=== PATIENT | female | born 1990 | race Caucasian/White ===

== ENCOUNTER 2017-01-30 20:39 | Emergency (ER) | payer OTHER ==
[~2017-01-30] VITALS: Ht 170.2 cm; Wt 109.1 kg
[~2017-01-30 20:39] MED LIST: ASCO500C6 PO; DOXY25TA46 PO; FERR325C PO; OMEP20TA24 PO; PREN1TAB25 PO; PYR50 PO
[2017-01-30 21:03] VITALS: BP 121/79; PULSE 99; RESP 20; O2SAT 98
--- NOTE | 2017-01-30 21:59 | ED.REPORT ---
HPI- Female Date of Service Jan 30, 2017 ED Provider: Jacob Rios MD Patient is a 26 year old female with a history of anxiety and depression presenting to the ED c/o a possible urinary tract infection. Associated symptoms include dysuria, urinary urgency, and urinary frequency. She denies back pain, fever, chills, and nausea. Her most recent UTI was around 03/2016. Nursing Notes Stated Complaint: POSSIBLE BLADDER INFECTION Chief Complaint: Female Abdominal Pain Nursing Notes Reviewed: Yes Allergies: Coded Allergies: Sulfa (Sulfonamide Antibiotics) (Verified Allergy, Unknown, hives, 01/30/17 ) codeine (Verified Allergy, Unknown, hives, 01/30/17) Scheduled Ascorbic Acid (Vitamin C) 500 Mg Capsule.er 500 MG PO DAILY Ferrous Sulfate (Iron) 325 Mg Capsule.er 325 MG PO DAILY Omeprazole Magnesium (Prilosec Otc) 20 Mg Tablet.dr 20 MG PO DAILY Vit#96/Ferrous Fum/FA ( Tablet) 1 Each Tablet 1 EACH PO DAILY Pyridoxine (Vitamin B-6) 50 Mg Tablet 50 MG PO DAILY Scheduled PRN Doxylamine Succinate (Unisom) 25 Mg Tablet 25 MG PO PRN Insomnia General Time Seen by MD: 21:51 Chief Complaint Other (possible UTI) Hx Obtained From: Patient Arrived By: Walk-in Sudden in Onset?: No Recent Healthcare: No recent doctor visit, No recent hospitalization Similar Sx Previous: Yes Past Medical History Past Medical History Depression IBS Factor 5 Clotting Reports: Asthma Past Surgical History Cholecystectomy Sinus Bladder repair x7 adenoidectomy Reports: Tonsillectomy Family History Noncontributory Smoking History Former Smoker Social History Alcohol Use: "Social" Drug Use: Denies drug use Other Social History: Good social support, , Lives with children, Local resident Ambulatory Status Independent Review of Systems Constitutional: Denies: Chills, Fever GI: Denies: Nausea Female: Reports: Dysuria, Urinary frequency, Urinary urgency Musculoskeletal: Denies: Back pain Skin: Denies Rash Complete sys rev & neg: except as marked. Physical Exam Initial Vital Signs Vital Signs (First) Date Time Temp Pulse Resp B/P Pulse Ox O2 Delivery O2 Flow Rate FiO2 01/30/17 21:03 36.9 99 20 121/79 98 Room Air Initial VS: Reviewed, Vital signs normal Female Genitourinary: Exam deferred General/Constitutional: Awake, Alert, No acute distress Respiratory / Chest: Atraumatic, Breath sounds NL, Breath sounds = bilat, No respiratory distress Cardiovascular: Heart rate NL, Regular rhythm, Heart sounds NL Abdomen: Atraumatic, Soft mild suprapubic tenderness abdomen otherwise nontender Back: Atraumatic, Inspection NL, Full range of motion, No CVA tenderness Skin: Atraumatic, Color NL, No rash, Warm, Dry, Intact Head / Eyes: Atraumatic, Normocephalic, PERRL, EOMI ENT: Atraumatic, Airway patent, Mucous membranes moist Upper Extremity / MS: Atraumatic, Inspection NL, Full range of motion Lower Extremity / Pelvis / MS: Atraumatic, Full range of motion Neurologic: Oriented X3, Speech NL, No motor deficits, No sensory deficits Interpretation & Diagnostics Lab Results Interpretation Test 01/30/17 21:45 Urine Color Yellow (YELLOW) Urine Appearance Clear (CLEAR,HAZY) Urine pH 7.0 (5.0-8.0) Urine Specific [place] 1.005 (1.003-1.035) Urine Protein Negativemg/dL (NEG,TRACE) Urine Glucose (UA) Negativemg/dL (NEGATIVE) Urine Ketones Negativemg/dL (NEGATIVE) Urine Occult Blood Negative (NEGATIVE) Urine Nitrite Negative (NEGATIVE) Urine Bilirubin Negative (NEGATIVE) Urine Urobilinogen 2.0mg/dL (NORMAL) Urine Leukocyte Esterase Negative (NEGATIVE) Urine RBC 0-2/hpf (0-2) Urine WBC 0-5/hpf (0-5) Urine Epithelial Cells Occasional/hpf (NONE-MOD) Urine Crystals None seen (NONE SEEN) Urine Bacteria Few/hpf (NONE-FEW) Urine Hyaline Casts None/lpf (NONE) Urine Granular Casts None seen (NONE SEEN) Urine Waxy Casts None seen (NONE SEEN) Urine Red Blood Cell Casts None seen (NONE SEEN) Urine White Blood Cell Casts None seen (NONE SEEN) Urine Mucus None seen (None Seen) Urine Trichomonas None seen (NONE SEEN) Urine Yeast None (NONE SEEN) Urinalysis Comment None Urine Culture Reflexed Not indicated Hold Urine Received (Received) Lab Results Interpretation: Dipstick was positive for leukocytes, microscopic is negative for leukocytes, culture pending Re-Eval/Medical Decision Med Decision/Clinical Course 26-year-old female who presents with classical UTI symptoms. Her dip urine showed leukocyte Estrace but there were no leukocytes seen on the microscopic. Culture is pending. We will treat empirically while awaiting culture. Source of Hx: Old records Re-Evaluation/Progress : Time of Eval: 21:51 Patient Status: Condition improved Re-Evaluation/Progress Note: Pt informed of the diagnosis and plan for discharge are addressed during the initial interview. The pt understands and agrees with the plan. All questions are addressed at this time. Counseled Regarding: Diagnosis, Lab results, Need for follow-up, When/why to return to ED Discharge & Departure Impression: Primary Impression: Urinary tract infection Urinary tract infection type: acute cystitis Hematuria presence: without hematuria Qualified Code: N30.00 - Acute cystitis without hematuria Disposition: Home Discharge Condition All VS Reviewed: Yes Condition: Improved Patient Instructions: Urinary Tract Infection in Women (ED) Additional Instructions: You have a bladder infection. Drink plenty fluids and cranberry juice. Nitrofurantoin (Macrodantin) 100 mg by mouth twice a day, #20 dispensed. Phenazopyridine (Uristat,Azo, [id number]) 2 pills 2 or 3 times daily for the first couple days as needed for pain, spasm, and frequency. Follow-up with your regular doctor if you are not improving in 2 or 3 days. We will contact you if the culture shows a bacteria that is not covered by this antibiotic. Referrals: Kanika Valentine (PCP) Edyta Monterroso MD Scribe Attestation Portions of this note were transcribed by Nettie Glass & Samantha Diallo. I, Dr. Rios personally performed the history, physical exam and medical decision-making; I reviewed and confirmed the accuracy of the information in the transcribed note. Signed by: Rubio Norwood, 01/30/2017 and [id number]. copies to: Edyta Monterroso MD; Kanika Valentine Howard L MD Jan 30, 2017 21:59 Nettie Glass Jan 30, 2017 22:09 SAMANTHA DIALLO Jan 30, 2017 23:05
[2017-01-30] MEDS ORDERED: Phenazopyridine 97.5 mg Tablet PO ONE (22:10)
[2017-01-30 22:23] LABS: APPEARANCE,URINE CLEAR (CLEAR,HAZY); COLOR,URINE YELLOW (YELLOW); OCCULT BLOOD,URINE NEGATIVE (NEGATIVE)
[2017-01-30 22:31] VITALS: BP 124/79; PULSE 99; RESP 20; O2SAT 98
[2017-01-31] MEDS ORDERED: _Nitrofurantoin Macrocrystal 100 mg Capsule PO SCH (08:30)
== END 2017-01-30 22:37 | disposition home or self-care (01) ==
LOC: SED 20:39
DX: N30.00 Acute cystitis without hematuria (principal); B96.20 Unspecified Escherichia coli [E. coli] as the cause of diseases classified elsewhere; Z87.891 Personal history of nicotine dependence; Z79.899 Other long term (current) drug therapy; Z88.2 Allergy status to sulfonamides; Z88.5 Allergy status to narcotic agent